=== PATIENT | female | born 1940 | race American Indian/Alaskan Native ===

== ENCOUNTER 2019-03-25 13:28 | Inpatient (IN) ==
--- NOTE | 2019-03-25 14:37 | XRay Report ---
CLINICAL INFORMATION: syncope COMPARISON: 06/19/2018 FINDINGS: Mild cardiomegaly is unchanged. Tortuous thoracic aorta again noted. Remaining mediastinal and pulmonary vessels are normal. There is minor atelectasis in the right mid and lower lung. IMPRESSION: Mild stable cardiomegaly - no acute disease Interpreted and Authenticated by: Bryant Moss 03/25/19
--- NOTE | 2019-03-25 14:40 | XRay Report ---
CLINICAL INFORMATION: Fall, coccyx pain COMPARISON: Pelvic CT 02/16/2007 and 07/17/2013 FINDINGS: Lateral view shows mild acute angulation of the S5 segment - a change from prior CT. A transverse minimally impacted fracture through this region is suspected. Mild degenerative change seen in both SI joints. Soft tissues normal. There is acute angulation of the sacrococcygeal junction was identical to the older film IMPRESSION: Probable mildly impacted, slightly displaced fracture of the S5 segment. Interpreted and Authenticated by: Bryant Moss 03/25/19
[2019-03-25] MEDS ORDERED: 0.9 % SODIUM CHLORIDE 1,000 ML IV ONE ×2 (15:14→17:51)
--- NOTE | 2019-03-25 15:23 | Emergency Department Note ---
Dizziness HPI - General Chief Complaint: Syncope Stated Complaint: Dizziness Time Seen by Provider: 03/25/19 13:46 Source: patient Mode of arrival: wheelchair Limitations: no limitations - History of Present Illness HPI Narrative: Patient states she had 2 falls one coming out of the shower yesterday. Morning went back from the bathroom she fell in the bedroom. She is uncertain what happened she does not know she tripped or fell she lives with her sister who did not witness these episodes. Patient does not remember these episodes what happened she is alert cooperative and oriented with no neurologic findings. She is a heavy smoker smoking [id number] history of greater and continues smoking. She denies any chest pain or there are no neurologic findings patient states she does not eat or drink very much and care provider with her now states she drinks very little. He was seen on 01/30/2019 for syncopy and was believed to be due to dehydration as her CT at that time was negative as well.Initial blood pressure was 129/68 supine position. 110/67 in the sitting position. At 95/63 in the standing position. IV fluids have been started. Family states that she is was seen at an health service with and they did add on some more blood pr essure medications they are uncertain with these medications are however. - Related Data Home Medications Medication Instructions Recorded Confirmed alendronate 10 mg tablet 10 mg PO QDAY 11/20/17 03/25/19 aspirin 81 mg tablet,delayed 81 mg PO QDAY 11/20/17 03/25/19 release cyanocobalamin (vit B-12) 1,000 1,000 mcg PO QDAY 11/20/17 03/25/19 mcg tablet ergocalciferol (vitamin D2) 50,000 50,000 unit PO QWEEK 11/20/17 03/25/19 unit capsule hydrocodone 5 mg-acetaminophen 325 1 tab PO Q6H PRN 11/20/17 03/25/19 mg tablet irbesartan 300 mg tablet 300 mg PO QDAY 11/20/17 03/25/19 ketotifen 0.025 % (0.035 %) eye 1 drp OPHTHALMIC QID ml 11/20/17 01/22/19 drops mometasone-formoterol HFA 200 2 puff INHALATION BID 11/20/17 03/25/19 mcg-5 mcg/actuation aerosol inhaler rosuvastatin 10 mg tablet 5 mg PO QPM tab 11/20/17 03/25/19 tiotropium bromide 18 mcg capsule 1 cap INHALATION QDAY 11/20/17 03/25/19 with inhalation device ipratropium-albuterol 0.5 mg-3 3 ml INHALATION TID ml 06/27/18 03/25/19 mg(2.5 mg base)/3 mL nebulization soln albuterol sulfate 2.5 mg/3 mL 2.5 mg INHALATION QID 10/03/18 03/25/19 (0.083 %) solution for nebulization lubric eye drops 15 ml OPHTHALMIC TID PRN 10/03/18 03/25/19 methocarbamol 500 mg tablet 750 mg PO QID PRN 11/07/18 01/22/19 ranitidine 150 mg capsule 150 mg PO BID cap 11/07/18 03/25/19 RX: DULoxetine [Cymbalta] 20 mg PO DAILY 03/25/19 03/25/19 RX: hydrOXYzine [Vistaril] 10 mg PO Q4-8HP PRN 03/25/19 03/25/19 Previous Rx's Medication Instructions Recorded ferrous sulfate 325 mg (65 mg 325 mg PO QDAY #90 tab 12/09/18 iron) tablet chlorthalidone 25 mg tablet 25 mg PO QDAY #90 tab 01/22/19 RX: Carvedilol [Coreg] 12.5 mg PO BIDCC #30 tab 03/27/19 Allergies Allergy/AdvReac Type Severity Reaction Status Date / Time No Known Drug Allergies Allergy Verified 03/25/19 13:32 Review of Systems All systems ED: reviewed and negative except as stated. Constitutional: Denies: fever, chills Eyes: Denies: eye pain ENT ED: Denies: ear pain Cardiovascular: Denies: chest pain Respiratory: Denies: shortness of breath, cough Gastrointestinal: Denies: abdominal pain Genitourinary: Denies: dysuria Musculoskeletal: Reports: back pain Past Medical History - Past Medical History [facility] Narrative: All Active Problems (Last Reviewed 12/22/18 @ 11:59 by MARIANO Hernandez) Dehydration (Acute) Syncope and collapse (Acute) Chronic kidney disease, stage III (moderate) (Chronic) Chronic pain (Chronic) Vomiting (Chronic) Diarrhea (Chronic) CAD (coronary artery disease) (Chronic) History of EKG (Chronic ~2009) After-cataract with vision obscured (Chronic) Antral ulcer (Chronic) Microscopic hematuria (Chronic) Graves disease (Chronic) Dyspnea (Chronic) Tachypnea (Chronic) Tear film insufficiency (Chronic) Hearing loss (Chronic) Lower back pain (Chronic) B12 deficiency (Chronic) Perimenopausal (Chronic) Degenerative joint disease (DJD) of lumbar spine (Chronic) Acute exacerbation of chronic obstructive airways disease (Acute) Hypoxia (Chronic) Difficulty breathing (Chronic) Solitary pulmonary nodule (Chronic) Sleep apnea (Chronic) Nocturia (Chronic) Dizziness (Chronic) Neck pain (Chronic) Generalized pain (Chronic) Left hip pain (Chronic) Pain of left lower extremity (Chronic) Seasonal allergic conjunctivitis (Chronic) Pseudophakia (Chronic) Posterior vitreous detachment (Chronic) Weakness of distal arms and legs (Chronic) Aortic aneurysm (Chronic) Acute dermatitis (Chronic) After cataract not obscuring vision (Chronic) Hypermetropia (Chronic) Regular astigmatism (Chronic) Epiretinal membrane (Chronic) Hypertensive retinopathy (Chronic) Presbyopia (Chronic) Allergic rhinitis (Chronic) Backache (Chronic) Osteoporosis (Chronic) Gastroesophagitis (Chronic) Hypertensive disorder (Chronic) Vitamin D deficiency (Chronic) Mixed hyperlipidemia (Chronic) Chronic eczema (Chronic) Diverticulosis (Chronic) Coronary arteriosclerosis (Chronic) Tubular adenoma of colon (Chronic) Grief (Chronic) Irritable bladder (Chronic) Insomnia (Chronic) Chronic obstructive lung disease (Chronic) Urge and stress incontinence (Chronic) Cystocele (Chronic) Ulcer of esophagus (Chronic) Aortic valve disorder (Chronic) IBS (irritable bowel syndrome) (Chronic) Essential hypertension (Chronic) Past Surgical History (Last Reviewed 12/22/18 @ 11:59 by MARIANO Hernandez) History of colonoscopy (Chronic 05/17/10) History of colonoscopy with polypectomy (Chronic ~03/2018) History of cystometrogram (Chronic ~12/2000) History of cystoscopy (Chronic ~12/2000) History of hemorrhoidectomy (Chronic ~10/1981) Hx laparoscopic cholecystectomy (Chronic ~05/1992) Hx of esophagogastroduodenoscopy (Chronic ~02/2015) Wart (Chronic) Family History (Last Reviewed 12/22/18 @ 11:59 by MARIANO Hernandez) Family/Other Cancer Brother Diabetes Father Heart disease Unknown Breast cancer Hypertension Medical history: Reports: CHF, COPD, CAD (coronary artery disease), hyperlipidemia, hypertension, osteoporosis, other (Irritable bowel, aortic valve disorder) Surgical history ED: Reports: angioplasty/stent, cholecystectomy, hysterectomy, other (Hemorrhoidectomy) - Social History smoking status: Former smoker Packyears: 60 Alcohol use: Reports: None Drug use: Reports: none Physical Exam Limitations: no limitations General appearance: alert Head: atraumatic, normocephalic Eye: Present: normal appearance, PERRL ENT: normal exam, normal oropharynx, mucous membranes dry Neck: Present: normal inspection, full ROM, trachea midline Chest: Present: normal inspection, symmetric chest wall rise. Absent: tenderness Respiratory: Present: normal lung sounds bilaterally. Absent: respiratory distress, rales/crackles, wheezes Cardiovascular: Present: regular rate, normal rhythm, normal heart sounds. Absent: bradycardia, tachycardia, irregular rhythm Abdominal: Present: soft, normal bowel sounds. Absent: distention, tenderness, guarding, rebound, rigidity Extremities: Present: normal inspection, full ROM. Absent: tenderness Back: Present: normal inspection, full ROM. Absent: tenderness Neurological: Present: alert, oriented X3, CN II-XII intact Psychiatric: Present: normal affect, normal mood Skin: Present: warm, cool Course Vital Signs Temperature 97.0 F 03/25/19 13:28 Pulse Rate 65 03/25/19 13:28 Respiratory Rate 20 03/25/19 13:28 Blood Pressure 97/56 03/25/19 13:28 Pulse Oximetry (%) 95 03/25/19 13:28 Temperature 97.9 F 03/28/19 12:36 Pulse Rate 64 03/28/19 11:41 Respiratory Rate 24 H 03/28/19 12:36 Blood Pressure 139/72 03/28/19 12:36 Pulse Oximetry (%) 95 03/28/19 12:36 Dizziness - MDM Narrative Medical decision making narrative: Patient has had 2 syncope episodes in the past 12 hours. Had an episode of syncope in January. Pressure medications were increased at [facility] this week we are attempting to get these medications.Most recent orthostatics show blood pressure 138/55 a pulse of 58 blood pressure sitting was 118/50 pulse is 61 and standing BP of 82/64 pulse is 63WBC is 9900 to hemoglobin 12.9 hematocrit 39.8 lactic acid is 1.1 sodium is 133 the potassium 3.6 BUN is 22 creatinine 1.3 troponin less than 0.01 urine test showed only 5 WBCs C&S not indicated - Lab Data Result diagrams: 03/28/19 03:35 03/28/19 03:35 Lab Results 03/25/19 03/25/19 03/25/19 Range/Units 14:32 14:32 14:32 WBC 9.9 (4.5-11.0) K/mcL RBC 4.95 (4.00-5.20) M/mcL Hgb 12.9 (12.0-15.0) g/dL Hct 39.8 (36.0-48.0) % MCV 80.5 (80.0-100.0) fL MCH 26.1 (26.0-34.0) pg MCHC 32.4 (31.0-36.0) g/dL RDW 14.3 (11.5-14.5) % Plt Count 223 (140-440) K/mcL MPV 7.4 (7.4-10.4) fL Total Counted 100 Seg Neutrophils % 59 (38-78) % Band Neutrophils % Not Reportable Lymphocytes % 28 (15-49) % Monocytes % (Manual) 12 (1-12) % Eosinophils % (Manual) 1 (0-7) % Platelet Estimate Normal (NORMAL) RBC Morphology Normal (NORMAL) VBG Lactic Acid 1.1 (0.5-2.0) mmol/L Sodium 133 (133-145) mmol/L Potassium 3.6 (3.3-5.1) mmol/L Chloride 93 L (96-108) mmol/L Carbon Dioxide 24 (22-30) mmol/L Anion Gap 16.0 (8-16) BUN 20 (8-23) mg/dl Creatinine 1.3 H (0.6-1.1) mg/dl GFR Calculation 39 Glucose 94 (70-105) mg/dL Calcium 8.8 (8.6-10.4) mg/dl Total Bilirubin 0.6 (0.0-1.0) mg/dL AST 16 (0-37) U/l ALT 8 (0-40) U/l Alkaline Phosphatase 65 (39-117) U/L Total Creatine Kinase 28 (24-170) IU/L CK-MB (CK-2) < 1.0 (0-2.9) ng/ml Myoglobin 54 (25-58) ng/ml Troponin T (0-0.03) ng/ml Total Protein 7.5 (5.9-8.4) gm/dL Albumin 3.8 (3.2-5.2) gm/dL Globulin 3.7 (2.2-3.7) gm/dL Albumin/Globulin Ratio 1.0 (1.0-2.3) Urine Color Urine Appearance Urine pH (5.0-9.0) Ur Specific [place] (1.000-1.035) Urine Protein (NEG) mg/dL Urine Glucose (UA) (NEG) mg/dL Urine Ketones (NEG) mg/dL Urine Occult Blood (<0.03) mg/dL Urine Nitrate (NEG) Urine Bilirubin (NEG) mg/dL Urine Urobilinogen (NEG) mg/dL Ur Leukocyte Esterase (NEG) /uL Urine RBC (0-1) /hpf Urine WBC (0-4) /hpf Ur Squamous Epith Cells (0-4) /hpf Urine Bacteria (0) /hpf Hyaline Casts (0-2) /lpf Urine Mucus (0) /hpf Ur Culture Indicated? 03/25/19 03/25/19 Range/Units 14:32 16:25 WBC (4.5-11.0) K/mcL RBC (4.00-5.20) M/mcL Hgb (12.0-15.0) g/dL Hct (36.0-48.0) % MCV (80.0-100.0) fL MCH (26.0-34.0) pg MCHC (31.0-36.0) g/dL RDW (11.5-14.5) % Plt Count (140-440) K/mcL MPV (7.4-10.4) fL Total Counted Seg Neutrophils % (38-78) % Band Neutrophils % Lymphocytes % (15-49) % Monocytes % (Manual) (1-12) % Eosinophils % (Manual) (0-7) % Platelet Estimate (NORMAL) RBC Morphology (NORMAL) VBG Lactic Acid (0.5-2.0) mmol/L Sodium (133-145) mmol/L Potassium (3.3-5.1) mmol/L Chloride (96-108) mmol/L Carbon Dioxide (22-30) mmol/L Anion Gap (8-16) BUN (8-23) mg/dl Creatinine (0.6-1.1) mg/dl GFR Calculation Glucose (70-105) mg/dL Calcium (8.6-10.4) mg/dl Total Bilirubin (0.0-1.0) mg/dL AST (0-37) U/l ALT (0-40) U/l Alkaline Phosphatase (39-117) U/L Total Creatine Kinase (24-170) IU/L CK-MB (CK-2) (0-2.9) ng/ml Myoglobin (25-58) ng/ml Troponin T < 0.01 (0-0.03) ng/ml Total Protein (5.9-8.4) gm/dL Albumin (3.2-5.2) gm/dL Globulin (2.2-3.7) gm/dL Albumin/Globulin Ratio (1.0-2.3) Urine Color Yellow Urine Appearance Clear Urine pH 5.0 (5.0-9.0) Ur Specific [place] 1.015 (1.000-1.035) Urine Protein Neg (NEG) mg/dL Urine Glucose (UA) Negative (NEG) mg/dL Urine Ketones Neg (NEG) mg/dL Urine Occult Blood Neg (<0.03) mg/dL Urine Nitrate Neg (NEG) Urine Bilirubin Neg (NEG) mg/dL Urine Urobilinogen Neg (NEG) mg/dL Ur Leukocyte Esterase Neg (NEG) /uL Urine RBC < 1 (0-1) /hpf Urine WBC 5 H (0-4) /hpf Ur Squamous Epith Cells 3 (0-4) /hpf Urine Bacteria 0 (0) /hpf Hyaline Casts 2 (0-2) /lpf Urine Mucus Few (0) /hpf Ur Culture Indicated? No Disposition Pt seen by [employer]/PA only: No Clinical Impression: Orthostatic hypotension Disposition: Xfer As Inpt ([facility]) Condition: Good
[2019-03-25 15:24] LABS: Hematocrit 39.8 % (36.0-48.0); Hemoglobin 12.9 g/dL (12.0-15.0); Mean Cell Volume 80.5 fL (80.0-100.0); Mean Corpuscular HGB Conc 32.4 g/dL (31.0-36.0); Mean Platelet Volume 7.4 fL (7.4-10.4); Platelet Count 223 K/mcL (140-440); RBC 4.95 M/mcL (4.00-5.20); Red Cell Distribution Width 14.3 % (11.5-14.5); WBC 9.9 K/mcL (4.5-11.0)
[2019-03-25] MEDS ORDERED: HYDROcodone/APAP 5/325MG TABLET PO ONE (15:25)
[2019-03-25 15:53] LABS: Creatine Kinase MB < 1.0 ng/ml (0-2.9); Myoglobin 54 ng/ml (25-58)
[2019-03-25 15:58] LABS: ALT/SGPT 8 U/l (0-40); AST/SGOT 16 U/l (0-37); Albumin 3.8 gm/dL (3.2-5.2); Alkaline Phosphatase 65 U/L (39-117); Bilirubin,Total 0.6 mg/dL (0.0-1.0); Blood Urea Nitrogen 20 mg/dl (8-23); Calcium 8.8 mg/dl (8.6-10.4); Carbon Dioxide 24 mmol/L (22-30); Chloride 93 mmol/L (96-108); Creatine Kinase 28 IU/L (24-170); Globulin 3.7 gm/dL (2.2-3.7); Glomerular Filtration Rate 39; Glucose 94 mg/dL (70-105); Potassium 3.6 mmol/L (3.3-5.1); Sodium 133 mmol/L (133-145)
[2019-03-25 16:20] LABS: Eosinophils % (Manual) 1 % (0-7); Lymphocytes % 28 % (15-49); Monocytes % (Manual) 12 % (1-12); Platelet Estimate NORMAL (NORMAL); RBC Morphology NORMAL (NORMAL); Segmented Neutrophils % 59 % (38-78)
[2019-03-25 17:09] LABS: Appearance,Urine CLEAR; Bacteria,Urine 0 /hpf (0); Bilirubin,Urine NEG (NEG); Color,Urine YELLOW; Culture Indicated,Urine NO; Glucose,Urine (UA) NEGATIVE (NEG); Ketones,Urine NEG (NEG); Leukocyte Esterase,Urine NEG /uL (NEG); Mucus,Urine FEW /hpf (0); Nitrate,Urine NEG (NEG); Protein,Urine NEG (NEG); Specific Gravity,Urine 1.015 (1.000-1.035); Urine Blood NEG mg/dL (<0.03); Urine Hyaline Cast 2 /lpf (0-2); Urine RBC < 1 /hpf (0-1); Urine Squamous Epithelial Cell 3 /hpf (0-4); Urine WBC 5 /hpf (0-4); Urobilinogen,Urine NEG (NEG)
--- NOTE | 2019-03-25 18:40 | Internal Med History&Physical ---
Medical - H&P: [facility] Patient information: Note initiated : 03/25/19 at 6:38 pm Service Date, if different from initiated Date: [] Patient: Shey Villeda a 78 y/o F admitted on for Dizziness. Chief Complaint: [] Chief complaint: Recurrent fall and loss of consciousness History of present illness: Ms. Villeda is a 78 year old F with a history of coronary artery disease, poorly controlled hypertension and chronic kidney disease who presents to the ER today after repeated falls and loss of consciousness over the last 1 month. She first fell roughly a month ago in the kitchen while she was attempting to grab something from shelf. There was no seizure-like activity or incontinence and regained consciousness after a few seconds. She had another fall a few days later and then last evening in the bedroom. She again lost consciousness hitting her head today while on her way from bathroom. She subsequently went to detonator maker Dr. Shaw's office where due to low blood pressure she was referred to the ER for further evaluation During above episodes patient experienced diaphoresis/mild chest pain today. She denies chest palpitation, flutter, tearing neck pain or thunderclap headache. She denies double vision, recent fever cough, recurrent coughing spell or straining. She endorses taking new medication in the last month for uncontrolled hypertension. Other than that she denies diarrhea, dysuria, joint pain or weight loss. She is accompanied with her 2 daughter and granddaughter. Per family she does not drink enough and is often dehydrated. Initial work-up in the ER was consistent with positive orthostasis from blood pressure 130 dropping to 80s from supine to standing. Initial heart rate was in the 50s Hospitalist service was consulted for admission and evaluation. Patient endorses to history as above Review of systems A 10 point review of system was performed and is negative except for discussed above Medical - H&P: PMH Medical history: Chronic pain (Chronic) CAD (coronary artery disease status post stenting follows with Dr. Tory Moore/Dr. Iqbal) Antral ulcer (Chronic) Microscopic hematuria (Chronic) Graves disease (Chronic) Hearing loss (Chronic) bilateral Lower back pain (Chronic) Degenerative joint disease (DJD) of lumbar spine (Chronic) Sleep apnea (Chronic) Seasonal allergic conjunctivitis (Chronic) Aortic aneurysm (Chronic) Hypertensive retinopathy (Chronic) Gastroesophagitis (Chronic) Mixed hyperlipidemia (Chronic) Coronary arteriosclerosis (Chronic) Chronic obstructive lung disease (Chronic) Aortic valve disorder (Chronic) Essential hypertension (Chronic) Chronic kidney disease (Acute) Surgical History History of colonoscopy (Chronic 05/17/10) History of colonoscopy with polypectomy (Chronic ~03/2018) History of cystometrogram (Chronic ~12/2000) History of cystoscopy (Chronic ~12/2000) History of hemorrhoidectomy (Chronic ~10/1981) Hx laparoscopic cholecystectomy (Chronic ~05/1992) Hx of esophagogastroduodenoscopy (Chronic ~02/2015) Wart (Chronic) on left shoulder, liquid nitrogen treatment 07/04/05 History of hysterectomy (Chronic ~10/1973) Family History Family/Other Cancer aunt maternal Brother Diabetes Father Heart disease Unknown Breast cancer Hypertension Medical - H&P: Meds Home Medications Medication Instructions Recorded Confirmed Type alendronate 10 mg tablet 10 mg PO QDAY 11/20/17 03/25/19 History aspirin 81 mg tablet,delayed 81 mg PO QDAY 11/20/17 03/25/19 History release cyanocobalamin (vit B-12) 1,000 1,000 mcg PO QDAY 11/20/17 03/25/19 History mcg tablet ergocalciferol (vitamin D2) 50,000 50,000 unit PO QWEEK 11/20/17 03/25/19 History unit capsule hydrocodone 5 mg-acetaminophen 325 1 tab PO Q6H PRN 11/20/17 03/25/19 History mg tablet irbesartan 300 mg tablet 300 mg PO QDAY 11/20/17 03/25/19 History ketotifen 0.025 % (0.035 %) eye 1 drp OPHTHALMIC QID ml 11/20/17 01/22/19 History drops mometasone-formoterol HFA 200 2 puff INHALATION BID 11/20/17 03/25/19 History mcg-5 mcg/actuation aerosol inhaler rosuvastatin 10 mg tablet 5 mg PO QPM tab 11/20/17 03/25/19 History tiotropium bromide 18 mcg capsule 1 cap INHALATION QDAY 11/20/17 03/25/19 History with inhalation device ipratropium-albuterol 0.5 mg-3 3 ml INHALATION TID ml 06/27/18 03/25/19 History mg(2.5 mg base)/3 mL nebulization soln albuterol sulfate 2.5 mg/3 mL 2.5 mg INHALATION QID 10/03/18 03/25/19 History (0.083 %) solution for nebulization diltiazem ER (XR/XT) 120 mg 180 mg PO QDAY 10/03/18 03/25/19 History capsule,extended release 24 hr, controlled lubric eye drops 15 ml OPHTHALMIC TID PRN 10/03/18 03/25/19 History carvedilol 12.5 mg tablet 6.25 mg PO BID tab 11/07/18 03/25/19 History methocarbamol 500 mg tablet 750 mg PO QID PRN 11/07/18 01/22/19 History ranitidine 150 mg capsule 150 mg PO BID cap 11/07/18 03/25/19 History ferrous sulfate 325 mg (65 mg 325 mg PO QDAY #90 tab 12/09/18 03/25/19 Rx iron) tablet chlorthalidone 25 mg tablet 25 mg PO QDAY #90 tab 01/22/19 03/25/19 Rx DULoxetine [Cymbalta] 20 mg PO DAILY 03/25/19 03/25/19 History hydrOXYzine [Vistaril] 10 mg PO Q4-8HP PRN 03/25/19 03/25/19 History Allergies Allergy/AdvReac Type Severity Reaction Status Date / Time No Known Drug Allergies Allergy Verified 03/25/19 13:32 Medical - H&P: Exam - Constitutional Vitals: Temp Pulse Resp BP Pulse Ox 97.0 F 56 L 18 127/64 95 03/25/19 13:28 03/25/19 18:17 03/25/19 18:17 03/25/19 18:02 03/25/19 18:17 General appearance: no acute distress Exam: Alert and oriented Head normocephalic Oral cavity dry No ear nose discharge Eye movement symmetrical Neck no lymphadenopathy S1-S2 regular rhythm no murmur Diminished breath sounds bases but symmetrical Abdomen soft nontender nondistended Lower extremity no cyanosis clubbing no joint swelling no lymphedema Skin no suspicious lesion Psych alert cooperative Neuro nonfocal Medical - H&P: Reslt - Labs CBC & Chem 7: 03/25/19 14:32 03/25/19 14:32 Labs: Short CBC 03/25/19 Range/Units 14:32 WBC 9.9 (4.5-11.0) K/mcL Hgb 12.9 (12.0-15.0) g/dL Hct 39.8 (36.0-48.0) % Plt Count 223 (140-440) K/mcL BMP 03/25/19 14:32 Sodium 133 Potassium 3.6 Chloride 93 L Carbon Dioxide 24 BUN 20 Creatinine 1.3 H Glucose 94 Calcium 8.8 Cardiac Enzymes 03/25/19 03/25/19 Range/Units 14:32 14:32 Total Creatine Kinase 28 (24-170) IU/L CK-MB (CK-2) < 1.0 (0-2.9) ng/ml Troponin T < 0.01 (0-0.03) ng/ml Liver Function 03/25/19 Range/Units 14:32 Total Bilirubin 0.6 (0.0-1.0) mg/dL AST 16 (0-37) U/l ALT 8 (0-40) U/l Alkaline Phosphatase 65 (39-117) U/L Albumin 3.8 (3.2-5.2) gm/dL Urine 03/25/19 Range/Units 16:25 Urine Color Yellow Urine Appearance Clear Urine pH 5.0 (5.0-9.0) Ur Specific [place] 1.015 (1.000-1.035) Urine Protein Neg (NEG) mg/dL Urine Glucose (UA) Negative (NEG) mg/dL Medical - H&P: A/P (1) Syncope and collapse Current visit: No Status: Acute * Syncope and collapse-positive orthostatics. Rule out volume depletion/autonomic dysfunction. Check echocardiogram/carotid/posterior circulation Doppler to rule out basilar insufficiency. Aggressive PT OT for gait and safety eval. Telemetry admission to rule out tacky/bradyarrhythmia. * Weakness associated with orthostatic hypotension-PT OT/evaluation of etiology * Recurrent falls secondary to above * History of hypertension continue beta-francis/ARB/chlorthalidone * Hyperlipidemia continue statin * History of CAD-on aspirin/statin/beta-francis * History of COPD continue bronchodilators * Anxiety disorder continue duloxetine * History of paroxysmal atrial flutter -currently in sinus with heart rate around mid 50s. Continue beta-francis, hold diltiazem. * History of chronic kidney disease * Full code * Prophylaxis heparin Plan * Inpatient admission for evaluation of recurrent syncope. Anticipate a minimum of 2 midnight hospitalization for evaluation * Echocardiogram/posterior circulation Doppler ultrasound * Orthostatics, hold diltiazem * Aggressive PT OT/nutrition support * Pre-existing well condition management home meds
[2019-03-25] MEDS ORDERED: MELATONIN 3 MG TABLET PO PRN (19:35)
[2019-03-25] MEDS ORDERED: ACETAMINOPHEN 325 MG TABLET PO PRN (19:35)
[2019-03-25] MEDS ORDERED: ONDANSETRON 4 MG/2 ML VIAL IV PRN (19:35)
[2019-03-25] MEDS ORDERED: traZODone HCL 50 MG TABLET PO PRN (19:35)
[2019-03-25] MEDS ORDERED: MAGNESIUM HYDROXIDE 30 ML ORAL.SUSP PO PRN (19:35)
[2019-03-25] MEDS ORDERED: guaiFENesin/CODEINE 10 ML UDC PO PRN (19:35)
[2019-03-25] MEDS ORDERED: POLYETHYLENE GLYCOL 3350 17 GM PACKET PO PRN (19:35)
[2019-03-25] MEDS ORDERED: ACETAMINOPHEN 1,000 MG/100 ML BOTTLE IV PRN (19:35)
[2019-03-25] MEDS ORDERED: [UNRECOGNIZED DRUG - OTHER] OPHTHALMIC PRN (19:35)
[2019-03-25] MEDS ORDERED: CARBOXYMETHYLCELLULOSE SODIUM 1 EACH DROPER.GEL OU PRN (19:54)
[2019-03-25] MEDS: HYDROcodone/APAP 5/325MG TABLET PO PRN (20:03)
[2019-03-25] MEDS: CARVEDILOL 12.5 MG TABLET PO SCH (20:04)
[2019-03-25] MEDS ORDERED: RANITIDINE HCL 150 MG PO SCH (21:00)
[2019-03-25] MEDS ORDERED: ROSUVASTATIN 10 MG TABLET PO SCH (21:00)
[2019-03-25] MEDS: HEPARIN 5,000 UNIT/ML VIAL SQ SCH (21:42)
[2019-03-25] MEDS: CYANOCOBALAMIN (VITAMIN B-12) 500 MCG TABLET PO SCH (21:43)
[2019-03-25] MEDS: 0.9 % SODIUM CHLORIDE 1,000 ML IV SCH (21:43)
[2019-03-25] MEDS: FAMOTIDINE 20 MG TABLET PO SCH (21:43)
[2019-03-25] MEDS: ATORVASTATIN 20 MG TABLET PO SCH (21:43)
[2019-03-25] MEDS: SENNOSIDES/DOCUSATE SODIUM 1 TAB TABLET PO SCH (21:44)
[2019-03-25] MEDS: DOCUSATE SODIUM 100 MG CAPSULE PO SCH (21:44)
[2019-03-25] MEDS: DULERA INH SCH (21:44)
[2019-03-25] MEDS: 0.9 % SODIUM CHLORIDE 10 ML SYRINGE IV SCH (21:46)
[2019-03-26] MEDS: HYDROcodone/APAP 5/325MG TABLET PO PRN ×4 (01:42→18:25)
--- NOTE | 2019-03-26 02:53 | Ultrasound Report ---
CLINICAL INFORMATION: Dizziness question vertebrobasilar insufficiency COMPARISON: None. TECHNIQUE: Spectral Doppler velocity measurements were obtained in the proximal, mid and distal common and internal carotid, both vertebral and proximal external carotid arteries bilaterally. Supplemental color and power Doppler imaging was also obtained to optimize stenosis detection. In reporting, any internal carotid stenosis was indirectly quantified comparing the distal internal carotid velocity. For ratio comparison, the internal carotid artery, at the level of stenosis, was utilized in the numerator and the normal distal internal carotid artery velocity was utilized as the denominator. Velocities are validated with angiographic measurements extrapolated from diameter data - as defined by the Society of Radiologists in Ultrasound Consensus Conference .Radiology 2003; 229; 340 - 346. FINDINGS: See worksheet by the technologist for velocities in PACS IMPRESSION: Both common, internal and external carotid arteries are widely patent. There is calcific and fibrofatty atherosclerotic plaque in both carotid bifurcations Antegrade flow present in both vertebral arteries Please correlate with CTA CT Angiography or MRA MR Angiography if surgery is contemplated. Interpreted and Authenticated by: Bryant Moss 03/26/19
[2019-03-26 05:07] LABS: Hematocrit 31.9 % (36.0-48.0); Hemoglobin 10.8 g/dL (12.0-15.0); Mean Cell Volume 79.7 fL (80.0-100.0); Mean Platelet Volume 7.4 fL (7.4-10.4); Platelet Count 180 K/mcL (140-440); Red Cell Distribution Width 13.4 % (11.5-14.5); WBC 6.9 K/mcL (4.5-11.0)
[2019-03-26] MEDS: 0.9 % SODIUM CHLORIDE 10 ML SYRINGE IV SCH ×3 (05:20→20:49)
[2019-03-26 05:43] LABS: ALT/SGPT 6 U/l (0-40); AST/SGOT 12 U/l (0-37); Albumin/Globulin Ratio 1.2 (1.0-2.3); Alkaline Phosphatase 53 U/L (39-117); Bilirubin,Direct < 0.2 mg/dL (0.0-0.3); Bilirubin,Total 0.3 mg/dL (0.0-1.0); Blood Urea Nitrogen 17 mg/dl (8-23); Calcium 7.7 mg/dl (8.6-10.4); Carbon Dioxide 24 mmol/L (22-30); Chloride 102 mmol/L (96-108); Globulin 2.6 gm/dL (2.2-3.7); Glomerular Filtration Rate 54; Glucose 78 mg/dL (70-105); Lactate Dehydrogenase 167 U/L (94-250); Magnesium 1.6 mg/dL (1.6-2.5); Phosphorous 3.4 mg/dL (2.7-4.5); Potassium 3.3 mmol/L (3.3-5.1); Sodium 137 mmol/L (133-145); Triglycerides 93 mg/dl (<150); Uric Acid 5.3 mg/dL (2.5-8.0)
[2019-03-26 05:59] LABS: Eosinophils % (Manual) 3 % (0-7); Lymphocytes % 28 % (15-49); Microcytosis 1+ (NONE SEEN); Monocytes % (Manual) 14 % (1-12); Platelet Estimate NORMAL (NORMAL); RBC Morphology ABNORM (NORMAL); Reactive Lymphocytes 1 % (0-2); Segmented Neutrophils % 54 % (38-78)
[2019-03-26] MEDS: 0.9 % SODIUM CHLORIDE 1,000 ML IV SCH ×2 (06:16→19:27)
[2019-03-26] MEDS: CARVEDILOL 12.5 MG TABLET PO SCH ×3 (08:09→21:16)
[2019-03-26] MEDS ORDERED: ALENDRONATE 10 MG PO SCH (09:00)
[2019-03-26] MEDS: DILTIAZEM 180 MG CAP.XL.24H PO SCH (09:22)
[2019-03-26] MEDS: CYANOCOBALAMIN (VITAMIN B-12) 500 MCG TABLET PO SCH ×2 (09:41→20:47)
[2019-03-26] MEDS: FERROUS SULFATE 325 MG TABLET PO SCH (09:42)
[2019-03-26] MEDS: MULTIVIT,THER IRON,CA,FA & MIN 1 TABLET PO SCH (09:42)
[2019-03-26] MEDS: DOCUSATE SODIUM 100 MG CAPSULE PO SCH ×2 (09:42→20:47)
[2019-03-26] MEDS: LOSARTAN 50 MG TABLET PO SCH (09:42)
[2019-03-26] MEDS: HEPARIN 5,000 UNIT/ML VIAL SQ SCH ×2 (09:44→20:49)
[2019-03-26] MEDS: FAMOTIDINE 20 MG TABLET PO SCH ×2 (09:44→20:47)
[2019-03-26] MEDS: ASPIRIN 81 MG TAB.CHEW PO SCH (09:45)
[2019-03-26] MEDS: DULERA INH SCH ×2 (09:46→20:51)
[2019-03-26] MEDS: CHLORTHALIDONE 25 MG TABLET PO SCH (09:52)
--- NOTE | 2019-03-26 09:57 | Internal Med Progress Note ---
Medical - PN: Subj Patient information: Note initiated : 03/26/19 at 9:54 am Service Date, if different from initiated Date: [] Patient: Shey Villeda 78 y/o F admitted on 03/25/19 for Dizziness. Chief Complaint: [] Interval history: Ms. Villeda is a 78 year old F with a history of coronary artery disease, poorly controlled hypertension and chronic kidney disease who presents to the ER today after repeated falls and loss of consciousness over the last 1 month. She first fell roughly a month ago in the kitchen while she was attempting to grab something from shelf. There was no seizure-like activity or incontinence and regained consciousness after a few seconds. She had another fall a few days later and then last evening in the bedroom. She again lost consciousness hitting her head today while on her way from bathroom. She subsequently went to [employer] fast[employer] assembler Dr. Shaw's office where due to low blood pressure she was referred to the ER for further evaluation During above episodes patient experienced diaphoresis/mild chest pain today. She denies chest palpitation, flutter, tearing neck pain or thunderclap headache. She denies double vision, recent fever cough, recurrent coughing spell or straining. She endorses taking new medication in the last month for uncontrolled hypertension. Other than that she denies diarrhea, dysuria, joint pain or weight loss. She is accompanied with her 2 daughter and granddaughter. Per family she does not drink enough and is often dehydrated. Initial work-up in the ER was consistent with positive orthostasis from blood pressure 130 dropping to 80s from supine to standing. Initial heart rate was in the 50s Hospitalist service was consulted for admission and evaluation. Patient endorses to history as above 03/26-patient remains persistently orthostatic and symptomatic. However improved since previous day. On crystalloids. Overnight telemetry reveals second- degree AV block. Discontinue diltiazem. Await echocardiogram to rule out cardiac etiology. Doppler of vertebrobasilar ultrasound unremarkable with widely patent carotid/antegrade vertebral artery flow. Continue hydration for volume depletion. Improved creatinine from 1.3-1 with crystalloids. Continue telemetry monitoring/continued work-up. - Constitutional Vitals: Vital Signs Temp Pulse Resp BP Pulse Ox 97.7 F 50 L 16 135/51 100 03/26/19 06:39 03/25/19 23:30 03/26/19 06:39 03/26/19 06:39 03/26/19 06:39 Period Temp Pulse Resp BP Sys/Lowry Pulse Ox Last 24 Hr 97.0 F-97.8 F 50-67 12-21 72-155/44-95 92-100 Intake and Output 03/25/19 03/26/19 03/26/19 21:59 05:59 13:59 Intake Total 1900 855 Output Total 200 950 Balance 1700 -950 855 Weight 144 lb 8 oz Intake & Output: Intake & Output 03/25/19 03/26/19 03/26/19 21:59 05:59 13:59 Intake Total 1900 855 Output Total 200 950 Balance 1700 -950 855 Weight 144 lb 8 oz Intake: IV 1900 855 Sodium Chloride 0.9% 1,000 ml @ 1900 855 100 mls/hr IV .Q10H [facility] Rx#: [id number] Output: Void Amount 200 950 Other: Meal snack Percent of Meal Consumed 75% Urine Appearance Clear Clear Urine Color Dark Yellow Bright Yellow Urine Odor Normal General appearance: no acute distress Exam: Alert oriented Diaphoretic and dizzy on standing from sitting position Second-degree AV block on quality assurance monitor final Nonlabored breathing Minimal anxiety Medical - PN: Obj Da - Labs CBC & Chem 7: 03/26/19 03:35 03/26/19 03:35 Labs: Abnormal Lab Results 03/26/19 03/26/19 03/25/19 03:35 03:35 16:25 Hgb 10.8 L Hct 31.9 L MCV 79.7 L Monocytes % (Manual) 14 H RBC Morphology Abnorm A Microcytosis 1+ A Chloride Creatinine Calcium 7.7 L Total Protein 5.6 L Albumin 3.0 L Urine WBC 5 H 03/25/19 14:32 Hgb Hct MCV Monocytes % (Manual) RBC Morphology Microcytosis Chloride 93 L Creatinine 1.3 H Calcium Total Protein Albumin Urine WBC Meds: Medications Acetaminophen (Tylenol) 650 mg PO Q4-6HP PRN PRN Reason: PAIN/FEVER > 101 Hydrocodone Bitart/Acetaminophen ([place] 5/325mg) 1 tab PO Q6HP PRN PRN Reason: Pain Last Admin: 03/26/19 07:05 Dose: 1 tab Documented by: Artificial Tears (Refresh Celluvisc) 1 each OU TIDP PRN PRN Reason: DRY EYES Aspirin (Aspirin) 81 mg PO DAILY [facility] Last Admin: 03/26/19 09:45 Dose: 81 mg Documented by: Atorvastatin Calcium (Lipitor) 10 mg PO HS [facility] Last Admin: 03/25/19 21:43 Dose: 10 mg Documented by: Carvedilol (Coreg) 6.25 mg PO BIDCC [facility] Last Admin: 03/26/19 08:09 Dose: 6.25 mg Documented by: Chlorthalidone (Hygroton) 25 mg PO QDAY [facility] Last Admin: 03/26/19 09:52 Dose: 25 mg Documented by: Cyanocobalamin (Vitamin B-12) 1,000 mcg PO BID [facility] Stop: 03/30/19 09:01 Last Admin: 03/26/19 09:41 Dose: 1,000 mcg Documented by: Diltiazem HCl (Cardizem Cd) 180 mg PO QDAY [facility] Last Admin: 03/26/19 09:22 Dose: Not Given Documented by: Docusate Sodium (Colace) 100 mg PO BID [facility] Last Admin: 03/26/19 09:42 Dose: 100 mg Documented by: Ergocalciferol (Drisdol) 50,000 unit PO QWEEK [facility] Famotidine (Pepcid) 20 mg PO BID [facility] Last Admin: 03/26/19 09:44 Dose: 20 mg Documented by: Ferrous Sulfate (Ferrous Sulfate) 325 mg PO QDAY [facility] Last Admin: 03/26/19 09:42 Dose: 325 mg Documented by: Guaifenesin/Codeine Phosphate (Robitussin Ac) 10 ml PO Q4HP PRN PRN Reason: Cough Heparin Sodium (Porcine) (Heparin) 5,000 unit SQ Q12 [facility] Last Admin: 03/26/19 09:44 Dose: 5,000 unit Documented by: Acetaminophen (Ofirmev) 1,000 mg in 100 mls @ 200 mls/hr IV Q6HP PRN PRN Reason: PAIN/FEVER > 101 Sodium Chloride (Sodium Chloride 0.9%) 1,000 mls @ 100 mls/hr IV .Q10H [facility] Last Admin: 03/26/19 06:16 Dose: 100 mls/hr Documented by: Iron Carb/Multivit/[place]/Folic Acid (Multivitamin W/Minerals) 1 tab PO DAILY [facility] Last Admin: 03/26/19 09:42 Dose: 1 tab Documented by: Losartan Potassium (Cozaar) 100 mg PO DAILY [facility] Last Admin: 03/26/19 09:42 Dose: 100 mg Documented by: Magnesium Hydroxide (Milk Of Magnesia) 30 ml PO HSP PRN PRN Reason: Constipation Melatonin (Melatonin 3mg Tablet) 5 mg PO HSP PRN PRN Reason: Insomnia Ondansetron HCl (Zofran) 4 mg IV Q4-6HP PRN PRN Reason: Nausea And Vomiting Dulera 200 Mcg/5 Mcg (Inh) 2 dose INH BID [facility] Last Admin: 03/26/19 09:46 Dose: Not Given Documented by: Polyethylene Glycol (Miralax) 17 gm PO DAILYP PRN PRN Reason: Constipation Senna/Docusate Sodium (Senna Plus Tablet) 1 tab PO HS [facility] Last Admin: 03/25/19 21:44 Dose: Not Given Documented by: Sodium Chloride (Saline Flush) 10 ml IV Q8 [facility] Last Admin: 03/26/19 05:20 Dose: Not Given Documented by: Thiamine HCl (Vitamin B1) 100 mg PO DAILY [facility] Tiotropium [place] (Spiriva) 18 mcg INH QDAY [facility] Trazodone HCl (Desyrel) 50 mg PO HSP PRN PRN Reason: Insomnia Medical - PN: A/P - Time Spent With Patient Total time spent is greater than 50% in coordination of care (as documented) at patient's floor/unit and/or counseling patient: 25 - 35 minutes (1) Syncope and collapse Status: Acute Assessment and plan: * Syncope and collapse-positive repeat orthostatics. Suspect volume depletion/underlying AV needle francis with bradycardia. Continue crystalloid/hold Cardizem. If symptoms persist despite volume resuscitation evaluate for autonomic dysfunction. Will require outpatient Holter monitoring/tilt table test. Carotid/vertebral basilar ultrasound negative. Echocardiogram pending to rule out valvular etiology for syncope. Continue gait and safety eval * Acute kidney injury is likely secondary to volume depletion-creatinine down from 1.3-1 with crystalloids * Second-degree AV block-discontinue diltiazem to avoid degeneration to complete heart block. * Weakness/falls-PT OT/gait and safety training * History of hypertension continue beta-francis/ARB/chlorthalidone. DC Cardizem. Continue gradual optimization * Hyperlipidemia continue statin * History of CAD-on aspirin/statin/beta-francis * History of COPD continue bronchodilators * Anxiety disorder continue duloxetine * History of paroxysmal atrial flutter -currently in sinus with heart rate around mid 50s. Continue beta-francis, discontinued diltiazem. * History of chronic kidney disease * Full code * Prophylaxis heparin Plan * Await echocardiogram * Continue crystalloid/repeat orthostatics * Stop diltiazem in light of second-degree AV block * Aggressive PT OT/nutrition support/fall precautions * Pre-existing well condition management home meds * Monitor renal function * Discharge planning likely in 24 to 48 hours once clinically improved Current Visit: No Medical - PN: Qual - Stroke Symptom Onset Unknown: No - VTE Deep Vein Thrombosis/Pulmonary Embolism Present on Admission: No
[2019-03-26] MEDS: THIAMINE 100 MG TABLET PO SCH (10:04)
[2019-03-26] MEDS: TIOTROPIUM BROMIDE 18 MCG INHALANT INH SCH (16:15)
--- NOTE | 2019-03-26 19:00 | Magnetic Resonance Report ---
CLINICAL INFORMATION: History of trauma - falls. Decreasing blood pressure COMPARISON: MRI 04/18/2010 TECHNIQUE:Sagittal T1 FLAIR, axial T1 FLAIR, T2 FLAIR propeller, T2 propeller, gradient, diffusion, ADC and coronal T2 weighted images were acquired. FINDINGS: The ventricles, sulci, fissures and cisterns are symmetrically enlarged compatible with moderate atrophy. This shows slight increase. There are no extra-axial fluid collections or masses appreciated. Extensive chronic ischemic changes seen in the cerebral white matter confluence in the deep periventricular region. Moderate chronic ischemic changes in the central kaz has progressed. There are multiple remote lacunar infarcts in the deep periventricular white matter, basal ganglia, left thalamus and inferior cerebellar hemispheres which has progressed from the previous study. There is no intracerebral hemorrhage, restricted diffusion, edema mass effect or other acute finding. Signal void in the intracerebral arteries, extra-axial cranial nerves, pituitary and orbits are all normal IMPRESSION: Moderate atrophy with extensive chronic ischemic changes in the deep cerebral white matter and central kaz. Multiple remote lacunar infarcts in the deep white matter, basal ganglia, left thalamus and inferior cerebellum are new from 2010 remote MRI. No acute findings Interpreted and Authenticated by: Bryant Moss 03/26/19
[2019-03-26] MEDS: ATORVASTATIN 20 MG TABLET PO SCH (20:47)
[2019-03-26] MEDS: SENNOSIDES/DOCUSATE SODIUM 1 TAB TABLET PO SCH (20:47)
[2019-03-27] MEDS ORDERED: hydrALAZINE 20 MG/ML VIAL IV PRN (00:40)
[2019-03-27] MEDS ORDERED: hydrALAZINE 20 MG/ML VIAL ONE (00:48)
[2019-03-27] MEDS: 0.9 % SODIUM CHLORIDE 10 ML SYRINGE IV SCH ×3 (05:00→22:28)
[2019-03-27 05:04] LABS: Hematocrit 35.4 % (36.0-48.0); Hemoglobin 11.5 g/dL (12.0-15.0); Mean Cell Volume 80.6 fL (80.0-100.0); Mean Corpuscular HGB Conc 32.4 g/dL (31.0-36.0); Mean Platelet Volume 7.6 fL (7.4-10.4); Platelet Count 198 K/mcL (140-440); RBC 4.39 M/mcL (4.00-5.20); Red Cell Distribution Width 14.3 % (11.5-14.5); WBC 9.6 K/mcL (4.5-11.0)
[2019-03-27 05:16] LABS: ALT/SGPT 5 U/l (0-40); AST/SGOT 14 U/l (0-37); Albumin 3.2 gm/dL (3.2-5.2); Alkaline Phosphatase 61 U/L (39-117); Bilirubin,Direct < 0.2 mg/dL (0.0-0.3); Bilirubin,Total 0.2 mg/dL (0.0-1.0); Blood Urea Nitrogen 17 mg/dl (8-23); Carbon Dioxide 25 mmol/L (22-30); Chloride 101 mmol/L (96-108); Globulin 3.1 gm/dL (2.2-3.7); Glomerular Filtration Rate 61; Glucose 97 mg/dL (70-105); Lactate Dehydrogenase 194 U/L (94-250); Magnesium 1.5 mg/dL (1.6-2.5); Phosphorous 3.3 mg/dL (2.7-4.5); Potassium 3.4 mmol/L (3.3-5.1); Sodium 137 mmol/L (133-145); Triglycerides 129 mg/dl (<150); Uric Acid 4.3 mg/dL (2.5-8.0)
--- NOTE | 2019-03-27 06:30 | Discharge Summary ---
Medical - DS: Prov Patient information: Note initiated : 03/27/19 at 6:30 am Service Date, if different from initiated Date: [] Patient: Shey Villeda 78 y/o F admitted on 03/25/19 for Dizziness. Chief Complaint: [] Date of admission: 03/25/19 19:09 Discharge date: 03/27/19 Primary care physician: Johnathan Hilliard Consults: 03/25/19 Consult to Physician [CONS] Stat Comment: Consulting Provider: Kavon Tilley Reason For Exam: Physician to Consult Medical - DS: Meds - Discharge Medications Active and Home Medications: Home Medications alendronate 10 mg tablet 10 mg PO QDAY 11/20/17 [History Confirmed 03/25/19 Last Taken Unknown] aspirin 81 mg tablet,delayed release 81 mg PO QDAY 11/20/17 [History Confirmed 03/25/19 Last Taken Unknown] cyanocobalamin (vit B-12) 1,000 mcg tablet 1,000 mcg PO QDAY 11/20/17 [History Confirmed 03/25/19 Last Taken Unknown] ergocalciferol (vitamin D2) 50,000 unit capsule 50,000 unit PO QWEEK 11/20/17 [History Confirmed 03/25/19 Last Taken Unknown] hydrocodone 5 mg-acetaminophen 325 mg tablet 1 tab PO Q6H PRN 11/20/17 [History Confirmed 03/25/19 Last Taken Unknown] irbesartan 300 mg tablet 300 mg PO QDAY 11/20/17 [History Confirmed 03/25/19 Last Taken Unknown] ketotifen 0.025 % (0.035 %) eye drops 1 drp OPHTHALMIC QID ml 11/20/17 [History Confirmed 01/22/19 Last Taken Unknown] mometasone-formoterol HFA 200 mcg-5 mcg/actuation aerosol inhaler 2 puff INHALATION BID 11/20/17 [History Confirmed 03/25/19 Last Taken Unknown] rosuvastatin 10 mg tablet 5 mg PO QPM tab 11/20/17 [History Confirmed 03/25/19 Last Taken Unknown] tiotropium bromide 18 mcg capsule with inhalation device 1 cap INHALATION QDAY 11/20/17 [History Confirmed 03/25/19 Last Taken Unknown] ipratropium-albuterol 0.5 mg-3 mg(2.5 mg base)/3 mL nebulization soln 3 ml INHALATION TID ml 06/27/18 [History Confirmed 03/25/19 Last Taken Unknown] albuterol sulfate 2.5 mg/3 mL (0.083 %) solution for nebulization 2.5 mg INHALATION QID 10/03/18 [History Confirmed 03/25/19 Last Taken Unknown] diltiazem ER (XR/XT) 120 mg capsule,extended release 24 hr, controlled 180 mg PO QDAY 10/03/18 [History Confirmed 03/25/19 Last Taken Unknown] lubric eye drops 15 ml OPHTHALMIC TID PRN 10/03/18 [History Confirmed 03/25/19 Last Taken Unknown] carvedilol 12.5 mg tablet 6.25 mg PO BID tab 11/07/18 [History Confirmed 03/25/19 Last Taken Unknown] methocarbamol 500 mg tablet 750 mg PO QID PRN 11/07/18 [History Confirmed 01/22/19 Last Taken Unknown] ranitidine 150 mg capsule 150 mg PO BID cap 11/07/18 [History Confirmed 03/25/19 Last Taken Unknown] ferrous sulfate 325 mg (65 mg iron) tablet 325 mg PO QDAY #90 tab 12/09/18 [Rx Confirmed 03/25/19 Last Taken Unknown] chlorthalidone 25 mg tablet 25 mg PO QDAY #90 tab 01/22/19 [Rx Confirmed 03/25/19 Last Taken Unknown] DULoxetine [Cymbalta] 20 mg PO DAILY 03/25/19 [History Confirmed 03/25/19 Last Taken Unknown] hydrOXYzine [Vistaril] 10 mg PO Q4-8HP PRN 03/25/19 [History Confirmed 03/25/19 Last Taken Unknown] Medical - DS: Hosp Hospital course: Mr. Villeda is a 78 year old F - Time Spent with Patient Total time spent providing and/or coordinating discharge services: Medical - DS: Exam - Constitutional Vitals: Vital Signs Temp Pulse Pulse Pulse Pulse Resp BP 03/27/19 03:55 98 F 87 18 110/61 03/27/19 01:09 03/27/19 01:05 03/27/19 00:58 03/26/19 23:24 97.2 F 81 18 194/92 03/26/19 19:11 96.3 F L 74 16 170/72 03/26/19 16:20 97.9 F 16 141/67 03/26/19 12:00 97.8 F 16 135/68 03/26/19 07:10 03/26/19 07:05 62 63 64 03/26/19 06:39 97.7 F 16 135/51 BP BP BP BP Pulse Ox 03/27/19 03:55 97 03/27/19 01:09 149/75 03/27/19 01:05 170/84 03/27/19 00:58 191/91 03/26/19 23:24 98 03/26/19 19:11 92 03/26/19 16:20 97 03/26/19 12:00 97 03/26/19 07:10 97 03/26/19 07:05 129/63 131/55 103/58 03/26/19 06:39 100 Intake and Output 03/26/19 03/27/19 03/27/19 21:59 05:59 13:59 Intake Total 1000 250 Output Total 1475 1700 Balance -475 -1450 Intake: IV 1000 Sodium Chloride 0.9% 1,000 ml @ 1000 100 mls/hr IV .Q10H [facility] Rx#: [id number] Oral 250 Output: Void Amount 1475 1700 Other: Urine Appearance Clear Urine Color Bright Yellow Urine Odor Normal Weight 146 lb Medical - DS: Data Labs on day of discharge: Labs from last 24 hours 03/27/19 03/27/19 03:30 03:30 WBC 9.6 RBC 4.39 Hgb 11.5 L Hct 35.4 L MCV 80.6 MCH 26.2 MCHC 32.4 RDW 14.3 Plt Count 198 MPV 7.6 Total Counted Pending Band Neutrophils % Not Reportable Platelet Estimate Pending RBC Morphology Pending Sodium 137 Potassium 3.4 Chloride 101 Carbon Dioxide 25 Anion Gap 11.0 BUN 17 Creatinine 0.9 GFR Calculation 61 Glucose 97 Uric Acid 4.3 Calcium 9.0 Phosphorus 3.3 Magnesium 1.5 L Total Bilirubin 0.2 Direct Bilirubin < 0.2 GGT 12 AST 14 ALT 5 Alkaline Phosphatase 61 Lactate Dehydrogenase 194 Total Protein 6.3 Albumin 3.2 Globulin 3.1 Albumin/Globulin Ratio 1.0 Triglycerides 129 Medical - DS: A/P - Problem Maintenance (1) Syncope and collapse Status: Acute - Follow up Plan Follow up with: Johnathan Hilliard ARNP [Primary Care Provider] - Prognosis: Good Medical - DS: Qual - VTE Deep Vein Thrombosis/Pulmonary Embolism Present on Admission: No
--- NOTE | 2019-03-27 06:36 | Discharge Summary ---
Medical - DS: Prov Patient information: Note initiated : 03/27/19 at 6:33 am Service Date, if different from initiated Date: [] Patient: Shey Villeda 78 y/o F admitted on 03/25/19 for Dizziness. Chief Complaint: [] Date of admission: 03/25/19 19:09 Discharge date: 03/27/19 Primary care physician: Johnathan Hilliard Consults: 03/25/19 Consult to Physician [CONS] Stat Comment: Consulting Provider: Kavon Tilley Reason For Exam: Physician to Consult Medical - DS: Meds - Discharge Medications Prescriptions: Carvedilol [Coreg] 12.5 mg PO BIDCC #30 tab Active and Home Medications: Home Medications alendronate 10 mg tablet 10 mg PO QDAY 11/20/17 [History Confirmed 03/25/19 Last Taken Unknown] aspirin 81 mg tablet,delayed release 81 mg PO QDAY 11/20/17 [History Confirmed 03/25/19 Last Taken Unknown] cyanocobalamin (vit B-12) 1,000 mcg tablet 1,000 mcg PO QDAY 11/20/17 [History Confirmed 03/25/19 Last Taken Unknown] ergocalciferol (vitamin D2) 50,000 unit capsule 50,000 unit PO QWEEK 11/20/17 [History Confirmed 03/25/19 Last Taken Unknown] hydrocodone 5 mg-acetaminophen 325 mg tablet 1 tab PO Q6H PRN 11/20/17 [History Confirmed 03/25/19 Last Taken Unknown] irbesartan 300 mg tablet 300 mg PO QDAY 11/20/17 [History Confirmed 03/25/19 Last Taken Unknown] ketotifen 0.025 % (0.035 %) eye drops 1 drp OPHTHALMIC QID ml 11/20/17 [History Confirmed 01/22/19 Last Taken Unknown] mometasone-formoterol HFA 200 mcg-5 mcg/actuation aerosol inhaler 2 puff INHALATION BID 11/20/17 [History Confirmed 03/25/19 Last Taken Unknown] rosuvastatin 10 mg tablet 5 mg PO QPM tab 11/20/17 [History Confirmed 03/25/19 Last Taken Unknown] tiotropium bromide 18 mcg capsule with inhalation device 1 cap INHALATION QDAY 11/20/17 [History Confirmed 03/25/19 Last Taken Unknown] ipratropium-albuterol 0.5 mg-3 mg(2.5 mg base)/3 mL nebulization soln 3 ml INHALATION TID ml 06/27/18 [History Confirmed 03/25/19 Last Taken Unknown] albuterol sulfate 2.5 mg/3 mL (0.083 %) solution for nebulization 2.5 mg INHALATION QID 10/03/18 [History Confirmed 03/25/19 Last Taken Unknown] lubric eye drops 15 ml OPHTHALMIC TID PRN 10/03/18 [History Confirmed 03/25/19 Last Taken Unknown] methocarbamol 500 mg tablet 750 mg PO QID PRN 11/07/18 [History Confirmed 01/22/19 Last Taken Unknown] ranitidine 150 mg capsule 150 mg PO BID cap 11/07/18 [History Confirmed 03/25/19 Last Taken Unknown] ferrous sulfate 325 mg (65 mg iron) tablet 325 mg PO QDAY #90 tab 12/09/18 [Rx Confirmed 03/25/19 Last Taken Unknown] chlorthalidone 25 mg tablet 25 mg PO QDAY #90 tab 01/22/19 [Rx Confirmed 03/25/19 Last Taken Unknown] DULoxetine [Cymbalta] 20 mg PO DAILY 03/25/19 [History Confirmed 03/25/19 Last Taken Unknown] hydrOXYzine [Vistaril] 10 mg PO Q4-8HP PRN 03/25/19 [History Confirmed 03/25/19 Last Taken Unknown] Carvedilol [Coreg] 12.5 mg PO BIDCC #30 tab 03/27/19 [Rx Last Taken Unknown] Medical - DS: Hosp Hospital course: Discharge diagnosis * Syncope and collapse-likely secondary to volume depletion. Positive orthostatics on admission which has improved since. Cardizem discontinued in light of telemetry revealing bradycardia/AV block. Patient will require outpatient Holter monitoring/tilt table test and a cardiology follow-up -being scheduled prior to discharge. Imaging including MRI brain/echocardiogram/azevedo tid/vertebral basilar ultrasound negative. Continued PT OT/gait and safety eval * Acute kidney injury is likely secondary to volume depletion-creatinine down from 1.3-0.9 with crystalloids * Second-degree AV block-discontinued diltiazem to avoid degeneration to complete heart block. * Weakness/falls-managed with aggressive PT OT/gait training * History of hypertension continue beta-francis/ARB/chlorthalidone. DC'd Cardizem. Continue gradual optimization * Hyperlipidemia continue statin * History of CAD-on aspirin/statin/beta-francis * History of COPD continue bronchodilators * Anxiety disorder continue duloxetine Brief hospital course Ms. Villeda is a 78 year old F with a history of coronary artery disease, poorly controlled hypertension and chronic kidney disease who presents to the ER today after repeated falls and loss of consciousness over the last 1 month. She first fell roughly a month ago in the kitchen while she was attempting to grab something from shelf. There was no seizure-like activity or incontinence and regained consciousness after a few seconds. She had another fall a few days later and then last evening in the bedroom. She again lost consciousness hitting her head today while on her way from bathroom. She subsequently went to jewel stripper Dr. Shaw's office where due to low blood pressure she was referred to the ER for further evaluation During above episodes patient experienced diaphoresis/mild chest pain today. She denies chest palpitation, flutter, tearing neck pain or thunderclap headache. She denies double vision, recent fever cough, recurrent coughing spell or straining. She endorses taking new medication in the last month for uncontrolled hypertension. Other than that she denies diarrhea, dysuria, joint pain or weigh t loss. She is accompanied with her 2 daughter and granddaughter. Per family she does not drink enough and is often dehydrated. Initial work-up in the ER was consistent with positive orthostasis from blood pressure 130 dropping to 80s from supine to standing. Initial heart rate was in the 50s Hospitalist service was consulted for admission and evaluation. Patient endorses to history as above 03/26-patient remains persistently orthostatic and symptomatic. However improved since previous day. On crystalloids. Overnight telemetry reveals second-degree AV block. Discontinue diltiazem. Await echocardiogram to rule out cardiac etiology. Doppler of vertebrobasilar ultrasound unremarkable with widely patent carotid/antegrade vertebral artery flow. Continue hydration for volume deplet ion. Improved creatinine from 1.3-1 with crystalloids. Continue telemetry monitoring/continued work-up. 03/27-patient doing well. No further dizzy episodes. MRI brain consistent with chronic ischemic change/carotid ultrasound/echo unremarkable. Cardizem discontinued in light of AV block and propensity for degeneration to third- degree heart block when used with beta-francis. Blood pressure in good control on Coreg 12.5 twice daily/chlorthalidone. Recommend follow-up with cardiology/outpatient Holter monitoring/tilt table test. Patient currently asymptomatic and feels ready for discharge. Detailed discharge instructions and follow-up recommendations along with medications as below. Discharge diagnosis: . - Time Spent with Patient Total time spent providing and/or coordinating discharge services: Greater than 30 minutes Medical - DS: Exam - Constitutional Vitals: Vital Signs Temp Pulse Pulse Pulse Pulse Resp BP 03/27/19 03:55 98 F 87 18 110/61 03/27/19 01:09 03/27/19 01:05 03/27/19 00:58 03/26/19 23:24 97.2 F 81 18 194/92 03/26/19 19:11 96.3 F L 74 16 170/72 03/26/19 16:20 97.9 F 16 141/67 03/26/19 12:00 97.8 F 16 135/68 03/26/19 07:10 03/26/19 07:05 62 63 64 03/26/19 06:39 97.7 F 16 135/51 BP BP BP BP Pulse Ox 03/27/19 03:55 97 03/27/19 01:09 149/75 03/27/19 01:05 170/84 03/27/19 00:58 191/91 03/26/19 23:24 98 03/26/19 19:11 92 03/26/19 16:20 97 03/26/19 12:00 97 03/26/19 07:10 97 03/26/19 07:05 129/63 131/55 103/58 03/26/19 06:39 100 Intake and Output 03/26/19 03/27/19 03/27/19 21:59 05:59 13:59 Intake Total 1000 250 Output Total 1475 1700 Balance -475 -1450 Intake: IV 1000 Sodium Chloride 0.9% 1,000 ml @ 1000 100 mls/hr IV .Q10H [facility] Rx#: [id number] Oral 250 Output: Void Amount 1475 1700 Other: Urine Appearance Clear Urine Color Bright Yellow Urine Odor Normal Weight 146 lb Medical - DS: Data Labs on day of discharge: Labs from last 24 hours 03/27/19 03/27/19 03:30 03:30 WBC 9.6 RBC 4.39 Hgb 11.5 L Hct 35.4 L MCV 80.6 MCH 26.2 MCHC 32.4 RDW 14.3 Plt Count 198 MPV 7.6 Total Counted Pending Band Neutrophils % Not Reportable Platelet Estimate Pending RBC Morphology Pending Sodium 137 Potassium 3.4 Chloride 101 Carbon Dioxide 25 Anion Gap 11.0 BUN 17 Creatinine 0.9 GFR Calculation 61 Glucose 97 Uric Acid 4.3 Calcium 9.0 Phosphorus 3.3 Magnesium 1.5 L Total Bilirubin 0.2 Direct Bilirubin < 0.2 GGT 12 AST 14 ALT 5 Alkaline Phosphatase 61 Lactate Dehydrogenase 194 Total Protein 6.3 Albumin 3.2 Globulin 3.1 Albumin/Globulin Ratio 1.0 Triglycerides 129 Medical - DS: A/P - Patient/Caregiver Discharge Instructions Activity: as per physical therapy Diet: Low Sodium (2gm) Additional Instructions: Follow-up PCP in 5 days Schedule cardiology follow-up as outpatient-Dr. Iqbal in 1 to 2 weeks Schedule outpatient 30-day Holter monitoring(second-degree AV block)/history of falls and syncope/tilt table test Plenty of oral fluids to avoid dehydration Stop diltiazem in light of recurrent syncope/second-degree AV block Increase Coreg to 12.5 twice daily I recommend primary care physician to coordinate optimization of hypertension management with cardiology Continue aggressive bowel regimen to prevent constipation Continue fall precautions All meals on chair sitting upright at 90 degrees to prevent aspiration Return to ER if worsening fever chills shortness of breath, diarrhea, bleeding Continue diet and activity as advised Discussed importance of medication adherence Please review medication list with patient prior to discharge Please schedule follow-up with PCP/Providers prior to discharge and provide printouts Prescriptions: Carvedilol [Coreg] 12.5 mg PO BIDCC #30 tab - Problem Maintenance (1) Syncope and collapse Status: Acute - Follow up Plan Follow up with: Jhonathan Hilliard ARNP [Primary Care Provider] - Disposition: Home, Self-Care Prognosis: Good Rehab Potential: Fair I certify that the patient requires SNF services: No Overall status at discharge: patient is progressing back to baseline Medical - DS: Qual - VTE Deep Vein Thrombosis/Pulmonary Embolism Present on Admission: No
[2019-03-27 06:38] LABS: Eosinophils % (Manual) 2 % (0-7); Lymphocytes % 27 % (15-49); Monocytes % (Manual) 9 % (1-12); Platelet Estimate NORMAL (NORMAL); RBC Morphology NORMAL (NORMAL); Reactive Lymphocytes 1 % (0-2); Segmented Neutrophils % 61 % (38-78)
--- NOTE | 2019-03-27 08:10 | Internal Med Progress Note ---
Medical - PN: Subj Patient information: Note initiated : 03/27/19 at 8:06 am Service Date, if different from initiated Date: [] Patient: Shey Villeda a 78 y/o F admitted on 03/25/19 for Dizziness. Chief Complaint: [] Interval history: Ms. Villeda is a 78 year old F with a history of coronary artery disease, poorly controlled hypertension and chronic kidney disease who presents to the ER today after repeated falls and loss of consciousness over the last 1 month. She first fell roughly a month ago in the kitchen while she was attempting to grab something from shelf. There was no seizure-like activity or incontinence and regained consciousness after a few seconds. She had another fall a few days later and then last evening in the bedroom. She again lost consciousness hitting her head today while on her way from bathroom. She subsequently went to programs assistant Dr. Shaw's office where due to low blood pressure she was referred to the ER for further evaluation During above episodes patient experienced diaphoresis/mild chest pain today. She denies chest palpitation, flutter, tearing neck pain or thunderclap headache. She denies double vision, recent fever cough, recurrent coughing spell or straining. She endorses taking new medication in the last month for uncontrolled hypertension. Other than that she denies diarrhea, dysuria, joint pain or weight loss. She is accompanied with her 2 daughter and granddaughter. Per family she does not drink enough and is often dehydrated. Initial work-up in the ER was consistent with positive orthostasis from blood pressure 130 dropping to 80s from supine to standing. Initial heart rate was in the 50s Hospitalist service was consulted for admission and evaluation. Patient endorses to history as above 03/26-patient remains persistently orthostatic and symptomatic. However improved since previous day. On crystalloids. Overnight telemetry reveals second- degree AV block. Discontinue diltiazem. Await echocardiogram to rule out cardiac etiology. Doppler of vertebrobasilar ultrasound unremarkable with widely patent carotid/antegrade vertebral artery flow. Continue hydration for volume depletion. Improved creatinine from 1.3-1 with crystalloids. Continue telemetry monitoring/continued work-up. 03/27-patient doing well. No further dizzy episodes. MRI brain consistent with chronic ischemic change/carotid ultrasound/echo unremarkable. Cardizem discontinued in light of AV block and propensity for degeneration to third- degree heart block when used with beta-francis. Blood pressure in good control on Coreg 12.5 twice daily/chlorthalidone. Recommend follow-up with cardiology/outpatient Holter monitoring/tilt table test. Patient currently asymptomatic and feels ready for discharge. Detailed discharge instructions and follow-up recommendations along with medications as below. Addendum Change in status with patient now complaining of lower abdominal pain along with nausea described as cramping 6 out of 10 started in the last half hour. Bladder scan 121 cc. Stat abdominal x-ray ordered. Cancel discharge and monitor for additional 24 hours until patient improves. Normal white count, stable hemodynamics, complains of lower back pain around the tailbone area. - Constitutional Vitals: Vital Signs Temp Pulse Resp BP Pulse Ox 97.2 F 88 20 153/75 100 03/27/19 07:45 03/27/19 07:37 03/27/19 07:45 03/27/19 07:45 03/27/19 07:45 Period Temp Pulse Resp BP Sys/Lowry Pulse Ox Last 24 Hr 96.3 F-98 F 74-88 16-20 110-194/61-92 92-100 Intake and Output 03/26/19 03/27/19 03/27/19 21:59 05:59 13:59 Intake Total 1000 250 Output Total 1475 1700 400 Balance -475 -1450 -400 Weight 146 lb Intake & Output: Intake & Output 03/26/19 03/27/19 03/27/19 21:59 05:59 13:59 Intake Total 1000 250 Output Total 1475 1700 400 Balance -475 -1450 -400 Weight 146 lb Intake: IV 1000 Sodium Chloride 0.9% 1,000 ml @ 1000 100 mls/hr IV .Q10H [facility] Rx#: [id number] Oral 250 Output: Void Amount 1475 1700 400 Other: Urine Appearance Clear Urine Color Bright Yellow Urine Odor Normal Stool Size Moderate Stool Color Brown Stool Consistency Soft Formed General appearance: moderate distress (Lower abdominal discomfort) Exam: No labored breathing Nondistended abdomen Anxious No telemetry events Medical - PN: Obj Da - Labs CBC & Chem 7: 03/27/19 03:30 03/27/19 03:30 Labs: Abnormal Lab Results 03/27/19 03/27/19 03/26/19 03:30 03:30 03:35 Hgb 11.5 L Hct 35.4 L MCV Monocytes % (Manual) RBC Morphology Microcytosis Chloride Creatinine Calcium 7.7 L Magnesium 1.5 L Total Protein 5.6 L Albumin 3.0 L Urine WBC 03/26/19 03/25/19 03/25/19 03:35 16:25 14:32 Hgb 10.8 L Hct 31.9 L MCV 79.7 L Monocytes % (Manual) 14 H RBC Morphology Abnorm A Microcytosis 1+ A Chloride 93 L Creatinine 1.3 H Calcium Magnesium Total Protein Albumin Urine WBC 5 H Meds: Medications Acetaminophen (Tylenol) 650 mg PO Q4-6HP PRN PRN Reason: PAIN/FEVER > 101 Last Admin: 03/26/19 10:04 Dose: 650 mg Documented by: Hydrocodone Bitart/Acetaminophen (Forrest 5/325mg) 1 tab PO Q6HP PRN PRN Reason: Pain Last Admin: 03/26/19 18:25 Dose: 1 tab Documented by: Artificial Tears (Refresh Celluvisc) 1 each OU TIDP PRN PRN Reason: DRY EYES Aspirin (Aspirin) 81 mg PO DAILY [facility] Last Admin: 03/26/19 09:45 Dose: 81 mg Documented by: Atorvastatin Calcium (Lipitor) 10 mg PO [facility] Last Admin: 03/26/19 20:47 Dose: 10 mg Documented by: [facility] Last Admin: 03/26/19 21:16 Dose: 12.5 mg Documented by: Chlorthalidone (Hygroton) 25 mg PO QDAY [facility] Last Admin: 03/26/19 09:52 Dose: 25 mg Documented by: Cyanocobalamin (Vitamin B-12) 1,000 mcg PO BID [facility] Stop: 03/30/19 09:01 Last Admin: 03/26/19 20:47 Dose: 1,000 mcg Documented by: Diltiazem HCl (Cardizem Cd) 180 mg PO QDAY [facility] Last Admin: 03/26/19 09:22 Dose: Not Given Documented by: Docusate Sodium (Colace) 100 mg PO BID [facility] Last Admin: 03/26/19 20:47 Dose: 100 mg Documented by: Ergocalciferol (Drisdol) 50,000 unit PO QWEEK [facility] Famotidine (Pepcid) 20 mg PO BID [facility] Last Admin: 03/26/19 20:47 Dose: 20 mg Documented by: Ferrous Sulfate (Ferrous Sulfate) 325 mg PO QDAY [facility] Last Admin: 03/26/19 09:42 Dose: 325 mg Documented by: Guaifenesin/Codeine Phosphate (Robitussin Ac) 10 ml PO Q4HP PRN PRN Reason: Cough Heparin Sodium (Porcine) (Heparin) 5,000 unit SQ Q12 [facility] Last Admin: 03/26/19 20:49 Dose: 5,000 unit Documented by: Hydralazine HCl (Apresoline) 0 mg IV Q4-6HP PRN PRN Reason: Hypertension Acetaminophen (Ofirmev) 1,000 mg in 100 mls @ 200 mls/hr IV Q6HP PRN PRN Reason: PAIN/FEVER > 101 Iron Carb/Multivit/Dunnell/Folic Acid (Multivitamin W/Minerals) 1 tab PO DAILY [facility] Last Admin: 03/26/19 09:42 Dose: 1 tab Documented by: Losartan Potassium (Cozaar) 100 mg PO DAILY [facility] Last Admin: 03/26/19 09:42 Dose: 100 mg Documented by: Magnesium Hydroxide (Milk Of Magnesia) 30 ml PO HSP PRN PRN Reason: Constipation Melatonin (Melatonin 3mg Tablet) 5 mg PO HSP PRN PRN Reason: Insomnia Ondansetron HCl (Zofran) 4 mg IV Q4-6HP PRN PRN Reason: Nausea And Vomiting Last Admin: 03/27/19 07:13 Dose: 4 mg Documented by: Dulera 200 Mcg/5 Mcg (Inh) 2 dose INH BID [facility] Last Admin: 03/26/19 20:51 Dose: 2 dose Documented by: Polyethylene Glycol (Miralax) 17 gm PO DAILYP PRN PRN Reason: Constipation Senna/Docusate Sodium (Senna Plus Tablet) 1 tab PO HS [facility] Last Admin: 03/26/19 20:47 Dose: 1 tab Documented by: Sodium Chloride (Saline Flush) 10 ml IV Q8 [facility] Last Admin: 03/27/19 05:00 Dose: 10 ml Documented by: Thiamine HCl (Vitamin B1) 100 mg PO DAILY [facility] Last Admin: 03/26/19 10:04 Dose: 100 mg Documented by: Tiotropium Marion (Spiriva) 18 mcg INH QDAY [facility] Last Admin: 03/26/19 16:15 Dose: Not Given Documented by: Trazodone HCl (Desyrel) 50 mg PO HSP PRN PRN Reason: Insomnia Medical - PN: A/P - Time Spent With Patient Total time spent is greater than 50% in coordination of care (as documented) at patient's floor/unit and/or counseling patient: 25 - 35 minutes (1) Syncope and collapse Status: Acute Assessment and plan: * Abdominal pain-new onset since this morning. Imaging including x-ray abdomen. If worsening CT * Nausea-continue antiemetics * Syncope and collapse-likely secondary to volume depletion. Positive orthostatics on admission which has improved since. Cardizem discontinued in light of telemetry revealing bradycardia/AV block. Patient will require outpatient Holter monitoring/tilt table test and a cardiology follow-up -being scheduled prior to discharge. Imaging including MRI brain/echocardiogram/carotid/vertebral basilar ultrasound negative. Continued PT OT/gait and safety eval * Acute kidney injury is likely secondary to volume depletion-creatinine down from 1.3-0.9 with crystalloids * Second-degree AV block-discontinued diltiazem to avoid degeneration to complete heart block. * Weakness/falls-managed with aggressive PT OT/gait training * History of hypertension continue beta-francis/ARB/chlorthalidone. DC'd Cardizem. Continue gradual optimization * Hyperlipidemia continue statin * History of CAD-on aspirin/statin/beta-francis * History of COPD continue bronchodilators * Anxiety disorder continue duloxetine * Full code * Prophylaxis heparin Plan * Abdominal imaging including x-ray and CT if inconclusive * Stop diltiazem in light of second-degree AV block * Increase Coreg dose to 12.5 * Aggressive PT OT/nutrition support/fall precautions * Pre-existing well condition management home meds * Discharge planning likely in 24 to 48 hours once clinically improves Current Visit: No Medical - PN: Qual - Stroke Symptom Onset Unknown: No - VTE Deep Vein Thrombosis/Pulmonary Embolism Present on Admission: No
--- NOTE | 2019-03-27 08:40 | XRay Report ---
CLINICAL INFORMATION: Abdominal Pain COMPARISON: None. FINDINGS: The stool gas pattern is unremarkable. There is no free air, soft tissue mass, organomegaly or pathologic calcification. IMPRESSION: Normal abdomen Interpreted and Authenticated by: Bryant Moss 03/27/19
[2019-03-27] MEDS: HEPARIN 5,000 UNIT/ML VIAL SQ SCH ×2 (08:45→20:39)
[2019-03-27] MEDS: MULTIVIT,THER IRON,CA,FA & MIN 1 TABLET PO SCH (08:46)
[2019-03-27] MEDS: CHLORTHALIDONE 25 MG TABLET PO SCH (08:46)
[2019-03-27] MEDS: DILTIAZEM 180 MG CAP.XL.24H PO SCH (08:46)
[2019-03-27] MEDS: THIAMINE 100 MG TABLET PO SCH (08:46)
[2019-03-27] MEDS: CARVEDILOL 12.5 MG TABLET PO SCH ×2 (08:46→17:45)
[2019-03-27] MEDS: CYANOCOBALAMIN (VITAMIN B-12) 500 MCG TABLET PO SCH ×2 (08:46→20:38)
[2019-03-27] MEDS: FERROUS SULFATE 325 MG TABLET PO SCH (08:46)
[2019-03-27] MEDS: ASPIRIN 81 MG TAB.CHEW PO SCH (08:46)
[2019-03-27] MEDS: FAMOTIDINE 20 MG TABLET PO SCH ×2 (08:46→20:38)
[2019-03-27] MEDS: LOSARTAN 50 MG TABLET PO SCH (08:46)
[2019-03-27] MEDS: TIOTROPIUM BROMIDE 18 MCG INHALANT INH SCH (08:47)
[2019-03-27] MEDS: DOCUSATE SODIUM 100 MG CAPSULE PO SCH ×2 (08:47→20:37)
[2019-03-27] MEDS: DULERA INH SCH ×2 (08:47→20:40)
[2019-03-27] MEDS: HYDROcodone/APAP 5/325MG TABLET PO PRN (11:57)
[2019-03-27] MEDS ORDERED: IOPAMIDOL 100 ML BOTTLE IV ONE (12:54)
--- NOTE | 2019-03-27 13:57 | Cat Scan Report ---
CLINICAL INFORMATION: Abdominal pain COMPARISON: Abdomen and pelvic CT from 01/17/2007 and 07/17/2013 TECHNIQUE: Following enteric contrast, 80 cc of Isovue-300 were injected intravenously, and 60 seconds later, 0.625 mm helical slices were obtained from the mid heart through the subtrochanteric regions. Following reconstruction, 2.5 mm sagittal, coronal and axial reformatted images were processed and reviewed at bone, lung and soft tissue windows. Five minutes later, 0.625 mm helical slices were obtained from the mid heart through the kidneys and viewed at soft tissue windows.The exam was performed using radiation dose optimization techniques including, but not limited to, automated exposure control, adjustment of the mA and/or kV according to patient size and use of iterative reconstruction technique. FINDINGS: Lung bases show moderate patchy interstitial disease in the anterior right lower lobe and middle lobe which was not seen on the previous study. This either represents fibrosis or inflammation. No effusion. The visualized heart is mildly enlarged, but unchanged Abdominal images show the liver is unremarkable. Gallbladder surgically absent. The common bile duct is moderately dilated, 12.6 mm, likely indicative of postcholecystectomy papillary stenosis. It is unchanged from 2006. The pancreas, both kidneys, adrenal glands, and spleen are unremarkable. The aorta is slightly ectatic with moderate fibrofatty calcific plaque. Pelvic images show hysterectomy /oophorectomy changes. Urinary bladder is normal. Multiple sigmoid diverticuli noted but no evidence of diverticulitis. The appendix is surgically absent. Small bowel and stomach are normal. Bone windows show moderate L2-3 degenerative disc disease resulting in moderate central canal IV foraminal narrowing. IMPRESSION: 1. No acute disease 2. Moderate, bile duct dilatation likely related to post cholecystomy papillary stenosis. No change from 2006 3. Moderate interstitial disease in the right middle and anterior right lower lobe - not seen on previous CT. This is likely fibrosis or developing infiltrate. Consider follow-up chest x-ray if there are pulmonary complaints 4. Sigmoid diverticulosis - no CT evidence for diverticulitis Interpreted and Authenticated by: Bryant Moss 03/27/19
[2019-03-27] MEDS ORDERED: MAGNESIUM OXIDE 400 MG TABLET PO ONE (15:12)
[2019-03-27] MEDS: SENNOSIDES/DOCUSATE SODIUM 1 TAB TABLET PO SCH (20:38)
[2019-03-27] MEDS: ATORVASTATIN 20 MG TABLET PO SCH (20:38)
[2019-03-28] MEDS: 0.9 % SODIUM CHLORIDE 10 ML SYRINGE IV SCH (05:58)
[2019-03-28 06:16] LABS: Hematocrit 35.2 % (36.0-48.0); Hemoglobin 11.5 g/dL (12.0-15.0); Mean Cell Volume 80.6 fL (80.0-100.0); Mean Corpuscular HGB Conc 32.6 g/dL (31.0-36.0); Mean Platelet Volume 7.6 fL (7.4-10.4); Platelet Count 189 K/mcL (140-440); RBC 4.37 M/mcL (4.00-5.20); Red Cell Distribution Width 14.1 % (11.5-14.5); WBC 9.6 K/mcL (4.5-11.0)
[2019-03-28 07:12] LABS: ALT/SGPT < 5 U/l (0-40); AST/SGOT 17 U/l (0-37); Albumin 3.3 gm/dL (3.2-5.2); Albumin/Globulin Ratio 1.1 (1.0-2.3); Alkaline Phosphatase 54 U/L (39-117); Bilirubin,Direct < 0.2 mg/dL (0.0-0.3); Bilirubin,Total 0.3 mg/dL (0.0-1.0); Blood Urea Nitrogen 17 mg/dl (8-23); Carbon Dioxide 29 mmol/L (22-30); Chloride 97 mmol/L (96-108); Globulin 3.1 gm/dL (2.2-3.7); Glomerular Filtration Rate 48; Glucose 79 mg/dL (70-105); Lactate Dehydrogenase 289 U/L (94-250); Magnesium 1.6 mg/dL (1.6-2.5); Phosphorous 3.3 mg/dL (2.7-4.5); Potassium 4.1 mmol/L (3.3-5.1); Sodium 137 mmol/L (133-145); Triglycerides 93 mg/dl (<150); Uric Acid 4.5 mg/dL (2.5-8.0)
[2019-03-28 07:21] LABS: Lymphocytes % 26 % (15-49); Monocytes % (Manual) 13 % (1-12); Platelet Estimate NORMAL (NORMAL); RBC Morphology NORMAL (NORMAL); Segmented Neutrophils % 61 % (38-78)
[2019-03-28] MEDS: ASPIRIN 81 MG TAB.CHEW PO SCH (08:38)
[2019-03-28] MEDS: FERROUS SULFATE 325 MG TABLET PO SCH (08:38)
[2019-03-28] MEDS: CYANOCOBALAMIN (VITAMIN B-12) 500 MCG TABLET PO SCH (08:38)
[2019-03-28] MEDS: LOSARTAN 50 MG TABLET PO SCH (08:38)
[2019-03-28] MEDS: CARVEDILOL 12.5 MG TABLET PO SCH (08:38)
[2019-03-28] MEDS: FAMOTIDINE 20 MG TABLET PO SCH (08:38)
[2019-03-28] MEDS: HEPARIN 5,000 UNIT/ML VIAL SQ SCH (08:38)
[2019-03-28] MEDS: DOCUSATE SODIUM 100 MG CAPSULE PO SCH (08:38)
[2019-03-28] MEDS: DILTIAZEM 180 MG CAP.XL.24H PO SCH (08:38)
[2019-03-28] MEDS: MULTIVIT,THER IRON,CA,FA & MIN 1 TABLET PO SCH (08:38)
[2019-03-28] MEDS: TIOTROPIUM BROMIDE 18 MCG INHALANT INH SCH (08:39)
[2019-03-28] MEDS: DULERA INH SCH (08:39)
[2019-03-28] MEDS: CHLORTHALIDONE 25 MG TABLET PO SCH (08:47)
[2019-03-28] MEDS: THIAMINE 100 MG TABLET PO SCH (08:47)
[2019-04-01] MEDS ORDERED: ERGOCALCIFEROL (VITAMIN D2) 50,000 UNIT CAPSULE PO SCH (09:00)
== END 2019-03-28 12:10 | disposition home or self-care (01) | DRG 312 ==
LOC: ED 13:28 → ICU 19:09
PROVIDERS: ADMIT Internal Medicine; ATTEND Internal Medicine